=== PATIENT | female | born 1935 | race Asian ===

== ENCOUNTER 2018-04-27 22:33 | Emergency (ER) | payer OTHER ==
[2018-04-27] MEDS ORDERED: HYDROcodone/Acetaminophen 5/325 mg Tablet ONE (22:55)
--- NOTE | 2018-04-27 23:37 | RAD ---
CHEST ONE VIEW THREE VIEWS RIGHT RIBS: 04/27/18 HISTORY: Injury. Fall. Pain. FINDINGS: Slight elongation of the aorta. Normal cardiac silhouette. The pulmonary vessels are prominent. There are patchy interstitial opacities throughout the lung parenchyma. No masses or consolidation. No pne umothorax. RIGHT RIB SERIES: Evaluation is limited by technique. No definite rib fractures are appreciated. IMPRESSION: 1. Limited evaluation of the right bony thorax due to technique. No obvious rib fractures. 2. No definite pneumothorax. 3. Interstitial opacities in the lung parenchyma and pulmonary vascular prominence. POS: [facility]
== END 2018-04-27 23:45 | disposition home health service (06) ==
LOC: SCSER 22:33
DX: S20.211A Contusion of right front wall of thorax, initial encounter (principal); E11.9 Type 2 diabetes mellitus without complications; I10 Essential (primary) hypertension; K21.9 Gastro-esophageal reflux disease without esophagitis; Z87.891 Personal history of nicotine dependence; W17.89XA Other fall from one level to another, initial encounter

== ENCOUNTER 2018-08-04 15:30 | Outpatient (CLI) | payer OTHER ==
--- NOTE | 2018-08-04 15:51 | RAD ---
[place] LATERAL CHEST X-RAY 08/04/18 HISTORY: Chronic cough, COPD. History of smoking for 15 years. COMPARISON: 04/27/18. FINDINGS: The cardiac silhouette is mildly enlarged. Pulmonary vasculature is at the upper limits of normal. Th ere is mild increase in interstitial densities bilaterally which could be related to mild chronic rosalee g changes. Moderate interstitial densities were also seen on the prior exam. No consolidation or pleu ral fluid is seen. Elevation of the right hemidiaphragm is again noted. Vascular calcifications are s een in an ectatic thoracic aorta which is similar to prior study. Degenerative changes are noted in t he spine. IMPRESSION: 1. Mild increase in interstitial densities probably related to chronic interstitial lung changes . 2. Cardiomegaly. POS: [facility]
== END 2018-08-04 15:31 | disposition home or self-care (01) ==
LOC: SCSRAD 15:30
PROVIDERS: ATTEND Family Medicine
DX: J44.9 Chronic obstructive pulmonary disease, unspecified (principal); I51.7 Cardiomegaly; J98.4 Other disorders of lung
CPT/HCPCS: 71046

== ENCOUNTER 2021-12-31 15:57 | Outpatient (CLI) | payer OTHER ==
[2021-12-31 17:28] LABS: #Basophils 0.1 10x3/uL (0.0-0.2); #Monocytes 0.6 10x3/uL (0.0-1.1); #Neutrophils 15.3 10x3/uL (1.5-8.4); %Basophils 0.6 % (0.0-2.0); %Eosinophils 0.2 % (0.0-6.0); %Lymphocytes 6.4 % (18.0-47.0); %Monocytes 3.3 % (0.0-10.0); %Neutrophils 88.9 % (40.0-75.0); Hemoglobin 11.7 g/dL (12.0-15.5); Mean Corpuscular HGB CONC 30.2 g/dL (32.0-36.0); Mean Corpuscular Hemoglobin 23.8 pg (27.0-33.0); Mean Corpuscular Volume 78.8 fl (81.6-98.3); Mean Platelet Volume 10.5 fl (7.4-10.4); Platelet Count 411 10x3/uL (150-450); Red Blood Cell (RBC) Count 4.91 10x6/uL (3.90-5.03); White Blood Cell (WBC) Count 17.2 10x3/uL (3.5-10.5)
[2021-12-31 17:31] LABS: Anion Gap 18 mmol/L (10-20); BUN (Urea Nitrogen) 27 mg/dL (9.8-20.1); Calc. Creatinine Clearance 0 mL/min (70-130); Calcium 9.4 mg/dL (7.8-10.44); Carbon Dioxide 20 mmol/L (23-31); Chloride 104 mmol/L (98-107); Glucose 227 mg/dL (83-110); Potassium 5.3 mmol/L (3.5-5.1); Sodium 137 mmol/L (136-145)
[2022-01-01 12:12] LABS: SARS-CoV-2 PCR by NAA Not Detected (NotDetected)
== END 2021-12-31 15:58 | disposition home or self-care (01) ==
LOC: LABBT 15:57
PROVIDERS: ATTEND Orthopaedic Surgery Hand Surgery
DX: Z01.818 Encounter for other preprocedural examination (principal); Z20.822 Contact with and (suspected) exposure to COVID-19
CPT/HCPCS: 80048; 85025; 93005; 93010; U0003; U0005

== ENCOUNTER 2022-01-04 15:28 | Outpatient (CLI) | payer OTHER ==
[2022-01-04 16:00] LABS: Bilirubin Neg (Negative); Blood, Urine Negative (Negative); Clarity Clear (Clear); Glucose, Urine (Dipstick) 50 mg/dL (Negative); Ketone, Urine Negative (Negative); Leukocyte Negative (Negative); Nitrite Negative (Negative); Protein, Urine (Dipstick) Negative (Neg-Trace); Urobilinogen Normal mg/dL (Less than 2); pH, Urine 6.5 (5.0-9.0)
== END 2022-01-04 15:29 | disposition home or self-care (01) ==
LOC: LABBT 15:28
PROVIDERS: ATTEND Orthopaedic Surgery Hand Surgery
DX: Z01.812 Encounter for preprocedural laboratory examination (principal); R22.32 Localized swelling, mass and lump, left upper limb
CPT/HCPCS: 81003

== ENCOUNTER 2022-01-05 05:50 | Day surgery (SDC) | payer OTHER ==
[2021-12-30 14:05] VITALS: BMI 36.0
[2022-01-05] MEDS ORDERED: Lidocaine 1% MPF 2 ML VIAL ONE (06:06)
[2022-01-05] MEDS ORDERED: Bupivacaine PF 0.5% 30 ML VIAL ONE (06:12)
[2022-01-05] MEDS ORDERED: Bacitracin Zinc Ointment 30 gm TUBE ONE (06:12)
[2022-01-05] MEDS ORDERED: Neomycin-Polymyxin 1 ML AMP ONE (06:12)
[2022-01-05] MEDS ORDERED: Fentanyl 250 MCG/5 ML VIAL ONE (06:24)
[2022-01-05] MEDS ORDERED: ceFAZolin Sodium (SDC) 2 GM/100 ML BAG ONE (07:01)
[2022-01-05] MEDS ORDERED: Ondansetron PF 4 MG/2 ML Vial ONE (07:16)
[2022-01-05] MEDS ORDERED: PROPOFOL 200 MG/20 ML VIAL ONE (07:16)
[2022-01-05] MEDS ORDERED: Lidocaine 1% PF 5 ML VIAL ONE (07:16)
[2022-01-05] MEDS ORDERED: Betamet Acet/Betamet Na Ph 30 MG/5 ML VIAL ONE (07:48)
[2022-01-05] MEDS ORDERED: Ketorolac Tromethamine 30 MG/ML VIAL ONE (09:13)
== END 2022-01-05 09:50 | disposition home or self-care (01) ==
LOC: SDC 05:50
PROVIDERS: ATTEND Orthopaedic Surgery Hand Surgery
PROC: 0JBK0ZZ Excision of Left Hand Subcutaneous Tissue and Fascia, Open Approach (ICD-10-PCS; principal; 2022-01-05)
DX: D18.09 Hemangioma of other sites (principal); E11.9 Type 2 diabetes mellitus without complications; I10 Essential (primary) hypertension; Z79.4 Long term (current) use of insulin; Z79.84 Long term (current) use of oral hypoglycemic drugs; Z79.899 Other long term (current) drug therapy
CPT/HCPCS: 36416; 88304; J0690; J0702; J1885; J2405; J2704; J3010; S0020